=== PATIENT | female | born 2000 ===

== ENCOUNTER 2020-04-05 08:45 | Inpatient (IN) | payer OTHER ==
[~2020-04-05] VITALS: Ht 172.7 cm; Wt 93.4 kg
[2020-04-07] MEDS ORDERED: TENORMIN25 MG (07:54)
== END 2020-04-08 17:27 | disposition home or self-care (01) | DRG 745 ==
LOC: OB/GYN 04-07 07:00 → O/R 04-07 07:34 → OB/GYN 04-07 08:45
PROVIDERS: ADMIT Specialist; ATTEND Specialist
PROC: 0JNC3ZZ Release Pelvic Region Subcutaneous Tissue and Fascia, Percutaneous Approach (ICD-10-PCS; 2020-04-07)
PROC: 0WJJ4ZZ Inspection of Pelvic Cavity, Percutaneous Endoscopic Approach (ICD-10-PCS; principal; 2020-04-07 07:00)
DX: N73.6 Female pelvic peritoneal adhesions (postinfective) (principal); R10.2 Pelvic and perineal pain